=== PATIENT | male | born 1945 | race Caucasian/White ===

== ENCOUNTER 2017-02-25 14:04 | Emergency (ER) | payer BC ==
[~2017-02-25 14:04] MED LIST: ASAB PO; CENTRUM PO; CINNAMONPO PO; COUMADIN4 MG PO; FISH OIL1200 MG PO; FORTAMET500 MG PO; HYZAAR 100/25 T1 TAB PO; LIPITOR20 PO; PCET PO; VITAMIN D1000 UNI1 PO
[2017-02-25 14:55] LABS: BASOPHILS 0.4 %; BASOPHILS ABSOLUTE 0.03 10/3/uL (0.0-0.16); EOSINOPHILS ABSOLUTE 0.14 10/3/uL (0.0-0.53); ER CBC TAT 0 Hrs 14 Mins; HEMATOCRIT 42.3 % (40.0-51.0); IMMATURE GRANULOCYTES 0.1 %; IMMATURE GRANULOCYTES ABSOLUTE 0.01 10/3/uL (0.0-0.11); LYMPHOCYTES 32.6 %; LYMPHOCYTES ABSOLUTE 2.24 10/3/uL (0.67-4.30); MANUAL DIFF NO %; MEAN CORPUS HGB CONC 35.5 g/dL (32.0-36.0); MEAN CORPUSCULAR HEMOGLOB 32.6 pg (26.0-34.0); MEAN PLATELET VOLUME 10.5 fL (9.2-13.0); MONOCYTES ABSOLUTE 0.69 10/3/uL (0.21-1.20); NEUTROPHILS 54.9 %; NEUTROPHILS ABSOLUTE 3.76 10/3/uL (2.02-8.40); PLATELET COUNT 188 10/3/uL (150-400); WHITE BLOOD CELLS 6.9 10/3/uL (4.5-10.5)
[2017-02-25 15:02] LABS: INTERNATIONAL NORMAL RATI 2.4 UNITS (-); PARTIAL THROMBO TIME 35.2 SEC (22.5-37.2)
[2017-02-25 15:02] LABS: ASCORBIC ACID (UR NOT ORDER) NEG (NEG); BILIRUBIN, URINE NEGATIVE (NEG); ER URINALYSIS TAT 0 Hrs 13 Mins; KETONE, URINE NEGATIVE (NEG); LEUKOCYTE ESTERASE(NOT OR NEG (NEG); NITRITE (URINE) NEG (NEG); WBC (NOT ORDERED) (RFLEX) < 1 (0-5)
[2017-02-25 15:04] LABS: PROTIME (NOT ORD) 26.1 SEC (12.0-14.5)
[2017-02-25 15:11] LABS: ALBUMIN 3.7 G/DL (3.5-5.0); ALKALINE PHOSPHATASE 42 U/L (45-117); CALCIUM, SERUM 8.6 MG/DL (8.5-10.4); CHEST PAIN PROFILE TAT 0 Hrs 30 Mins; CHLORIDE, SERUM 104 MMOL/L (96-112); CO2 (CARBON DIOXIDE) 26 MMOL/L (24-34); CREATININE 1.25 MG/DL (0.70-1.30); GFR AFRICAN AMERICAN 67 ML/MIN (>=60); GFR NON AFRICAN AMERICAN 58 ML/MIN (>=60); GLUCOSE, SERUM 119 MG/DL (60-99); POTASSIUM, SERUM 3.8 MMOL/L (3.5-5.3); SGOT(AST) 26 U/L (5-40); SGPT(ALT) 33 U/L (5-65); SODIUM, SERUM 139 MMOL/L (135-148); TOTAL BILIRUBIN 0.3 MG/DL (0-1.2); TOTAL PROTEIN 6.9 G/DL (6.0-8.5); TROPONIN I <0.02 NG/ML (<0.05)
[2017-02-25 15:12] LABS: BUN (BLOOD UREA NITROGEN) 21 MG/DL (6-23); DIRECT BILIRUBIN < 0.1 MG/DL (0.0-0.4); INDIRECT BILIRUBIN(NOT ORDER) 0.2 MG/DL (0.1-0.9)
[2017-02-25 15:13] LABS: LACTATE 1.7 MMOL/L (0.3-2.4)
[2017-02-25 17:52] LABS: T4 (THYROXINE) TOTAL 5.6 MCG/DL (4.5-12.0)
[2017-02-27] MEDS ORDERED: [UNRECOGNIZED DRUG - OTHER] PO (15:38)
[2017-02-27] MEDS ORDERED: BENTYL10 PO (15:40)
== END 2017-02-25 18:14 | disposition home or self-care (01) ==
LOC: ER 14:04
PROVIDERS: Emergency Medicine
DX: R10.32 Left lower quadrant pain (principal); R19.7 Diarrhea, unspecified; E11.9 Type 2 diabetes mellitus without complications; Z88.8 Allergy status to other drugs, medicaments and biological substances; Z88.4 Allergy status to anesthetic agent; Z79.01 Long term (current) use of anticoagulants; Z79.84 Long term (current) use of oral hypoglycemic drugs; Z79.82 Long term (current) use of aspirin; Z79.891 Long term (current) use of opiate analgesic; Z79.899 Other long term (current) drug therapy
CPT/HCPCS: 71010; 74177; 80048; 80076; 81001; 83605; 83690; 83735; 84436; 84443; 84484; 85025; 85610; 85730; 87040; 87045; 87046; 87046-59; 87328; 87329; 87493; 87493-59; 87899; 87899-59; 89055; 96365; 99285; A9270-GY; Q9967

== ENCOUNTER 2017-03-03 05:41 | Day surgery (SDC) | payer BC ==
--- NOTE | ~2017-03-03 | EGD ---
EGD REPORT [facility] [address] [address] NAME: FAITH OWEN : [birth year] [place]US : [place] [facility] [place] PAT#: [id number] AGE: 71 ADM/REG DATE : 03/03/17 MR#: [id number] REPORT SERV DATE: 03/03/17 DICTATED BY: JESI JOY DATE: 03/03/17 REPORT STATUS : Draft TRANSCRIBED BY: [facility] DATE: 03/03/17 [facility] Patient Name: Faith Owen Date of : 1945 Attending MD: JESI JOY MD Procedure Date No Time: 03/03/2017 Procedure: Colonoscopy Indications: Lower abdominal pain, Chronic diarrhea Referring MD: ALISHA GLEASON MD Medicines: Propofol per Anesthesia Complications: No immediate complications. Estimated blood loss: None. Procedure: Pre-Anesthesia Assessment: - After reviewing the risks and benefits, the patient was deemed in satisfactory condition to undergo the procedure. - Prior to the procedure, a History and Physical was performed, and patient medications and allergies were reviewed. The patient's tolerance of previous anesthesia was also reviewed. The risks and benefits of the procedure and the sedation options and risks were discussed with the patient. All questions were answered, and informed consent was obtained. Prior Anticoagulants: The patient has taken Coumadin (warfarin), last dose was 5 days prior to procedure. ASA Grade Assessment: III - A patient with severe systemic disease. After reviewing the risks and benefits, the patient was deemed in satisfactory condition to undergo the procedure. After I obtained informed consent, the scope was passed under direct vision. Throughout the procedure, the patient's blood pressure, pulse, and oxygen saturations were monitored continuously. The CF [id number] was introduced through the anus and advanced to the terminal ileum, with identification of the appendiceal orifice and IC valve. The colonoscopy was performed without difficulty. The ileocecal valve, appendiceal orifice and terminal ileum were photographed. The patient tolerated the procedure well. The quality of the bowel preparation was adequate. The bowel preparation used was polyethylene glycol (PEG). Scope withdrawal time was greater than 7 minutes. Findings: The perianal and digital rectal examinations were normal. Pertinent negatives include normal sphincter tone. The terminal ileum appeared normal. EGD REPORT [address] [address] NAME: FAITH OWEN : [birth year] [place]US : [place] [facility] [place] PAT#: [id number] AGE: 71 ADM/REG DATE : 03/03/17 MR#: [id number] REPORT SERV DATE: 03/03/17 DICTATED BY: JESI JOY DATE: 03/03/17 REPORT STATUS : Draft TRANSCRIBED BY: [employer] DATE: 03/03/17 Non-bleeding internal hemorrhoids were found during retroflexion and were small and Grade I (internal hemorrhoids that do not prolapse). Diffuse mild inflammation characterized by edematous mucosa was found in the descending colon, in the transverse colon and in the ascending colon. Biopsies were taken with a cold forceps for histology. Estimated blood loss: none. The exam was otherwise without abnormality. Impression: - The examined portion of the ileum was normal. - Non-bleeding internal hemorrhoids. - Diffuse mild inflammation was found in the descending colon, in the transverse colon and in the ascending colon. Biopsied. - The examination was otherwise normal. - Suspected microscopic colitis. Recommendation: - Discharge patient to home (ambulatory). - Return to previous diet. - Continue present medications. - Resume Coumadin (warfarin) at prior dose tomorrow. - Begin Pepto Bismol 3 tablets three times daily for 4-6 weeks for diarrhea. - Await pathology results. - Collect Hemoccults on three spontaneously passed stools annually. - Repeat colonoscopy in 10 years for screening purposes. - Patient has a contact number available for emergencies. The signs and symptoms of potential delayed complications were discussed with the patient. Return to normal activities tomorrow. Written discharge instructions were provided to the patient. Procedure Code(s): --- Professional --- 68740, Colonoscopy, flexible, proximal to splenic flexure; with biopsy, single or multiple Diagnosis Code(s): --- Professional --- K64.0, First degree hemorrhoids K52.9, Noninfective gastroenteritis and colitis, unspecified R10.30, Lower abdominal pain, unspecified CPT copyright 2013 [employer]. All rights reserved. The codes documented in this report are preliminary and upon wet end helper review may be revised to meet current compliance requirements. EGD REPORT [facility] [address] [address] NAME: FAITH OWEN : [birth year] [place]US : [place] [facility] [place] PAT#: [id number] AGE: 71 ADM/REG DATE : 03/03/17 MR#: [id number] REPORT SERV DATE: 03/03/17 DICTATED BY: JESI JOY. DATE: 03/03/17 REPORT STATUS : Draft TRANSCRIBED BY: [employer] DATE: 03/03/17 JESI JOY MD 03/03/2017 8:11 AM This report has been signed electronically. Number of Addenda: 0 Note Initiated On: 03/03/2017 7:04 AM Scope Withdrawal Time 0 hours 7 minutes 39 seconds [address] [id number]
[~2017-03-03 05:41] MED LIST changes: +BENTYL10 PO; +[UNRECOGNIZED DRUG - OTHER] PO
[2017-03-03 06:16] LABS: INTERNATIONAL NORMAL RATI 1.3 UNITS (-)
[2017-03-03 06:18] LABS: PROTIME (NOT ORD) 16.1 SEC (12.0-14.5)
== END 2017-03-03 23:59 | disposition home or self-care (01) ==
LOC: DMU 05:41
PROVIDERS: Anesthesiology; Internal Medicine Gastroenterology
PROC: 0DBL8ZX Excision of Transverse Colon, Via Natural or Artificial Opening Endoscopic, Diagnostic (ICD-10-PCS; 2017-03-03)
PROC: 0DBM8ZX Excision of Descending Colon, Via Natural or Artificial Opening Endoscopic, Diagnostic (ICD-10-PCS; 2017-03-03)
PROC: 0DBK8ZX Excision of Ascending Colon, Via Natural or Artificial Opening Endoscopic, Diagnostic (ICD-10-PCS; principal; 2017-03-03 07:30)
DX: K52.832 Lymphocytic colitis (principal); K64.0 First degree hemorrhoids; R10.30 Lower abdominal pain, unspecified; H33.20 Serous retinal detachment, unspecified eye; E11.9 Type 2 diabetes mellitus without complications; D64.9 Anemia, unspecified; M19.90 Unspecified osteoarthritis, unspecified site; H91.90 Unspecified hearing loss, unspecified ear; I10 Essential (primary) hypertension; E78.00 Pure hypercholesterolemia, unspecified; G47.30 Sleep apnea, unspecified; Z96.1 Presence of intraocular lens; Z90.49 Acquired absence of other specified parts of digestive tract; Z98.42 Cataract extraction status, left eye; Z87.891 Personal history of nicotine dependence; Z85.828 Personal history of other malignant neoplasm of skin; Z98.890 Other specified postprocedural states; Z88.8 Allergy status to other drugs, medicaments and biological substances; Z79.899 Other long term (current) drug therapy; Z79.891 Long term (current) use of opiate analgesic; Z79.01 Long term (current) use of anticoagulants
CPT/HCPCS: 82962; 85610; 88305